=== PATIENT | female | born 1980 | race Caucasian/White ===

== ENCOUNTER 2016-07-10 10:09 | Emergency (ER) | payer MEDICARE, MEDICAID ==
[~2016-07-10] VITALS: Ht 167.6 cm; Wt 80.5 kg
[~2016-07-10 10:09] MED LIST: AMLO5TAB2 PO; ASPI-515 PO; ATOR20TA9 PO; AZIT250T PO; CARV-39 PO; CEFD300C2 PO; CINA90TA PO; CITA10TA8 PO; CITA20TA5 PO; COLC0.6T37 PO; CYCL5TAB PO; CYCL5TAB10 PO; FAMO20TA7 PO; FURO80TA77 PO; GABA300C10 PO; HYDR-3342 PO; HYDR-3343 PO; INSU100I13 SQ-INSULIN; ISOS60TA PO; ISOS60TA36 PO; LEVO75TA PO; LISI40TA PO; METR500T PO; NITR0.4T SL; OMEP20CA9 PO; ONDA4TAB10 PO; OXYC-302 PO; OXYC1TAB7 PO; PROM25SU35 PR; SEVE800T8 PO; SPIR25TA3 PO; TICA90TA PO; TRIA15OI TP; WARF5TAB7 PO; ZOLP-413 PO
[2016-07-10] MEDS ORDERED: MORPHINE SULFATE 4 MG/ML, 1ML IVPush PRN (11:30)
[2016-07-10] MEDS ORDERED: PROMETHAZINE 25 MG/ML, 1ML IM ONE (11:30)
[2016-07-10] MEDS ORDERED: SODIUM CHLORIDE FLUSH 10ML SYR IVF ONE (11:30)
[2016-07-10 11:43] LABS: HEMOGLOBIN 10.9 g/dL (11.7-16.4)
[2016-07-10 11:57] LABS: ASPARTATE AMINO TRANSFERASE 9 U/L (15-37); BLOOD UREA NITROGEN 31 mg/dL (7-18)
[2016-07-10 12:05] LABS: IS PT STATUS REG ER OR PRE ER? YES
[2016-07-10] MEDS ORDERED: PROMETHAZINE 25 MG/ML, 1ML ONE (12:09)
[2016-07-10] MEDS ORDERED: MORPHINE SULFATE 4 MG/ML, 1ML ONE (12:10)
[2016-07-10 14:17] VITALS: BP 128/70
== END 2016-07-10 14:24 | disposition home or self-care (01) ==
LOC: ED 12:37
DX: R07.89 Other chest pain (principal); S30.1XXA Contusion of abdominal wall, initial encounter; R11.2 Nausea with vomiting, unspecified; E11.9 Type 2 diabetes mellitus without complications; E78.5 Hyperlipidemia, unspecified; E87.5 Hyperkalemia; I10 Essential (primary) hypertension; E03.9 Hypothyroidism, unspecified; E21.3 Hyperparathyroidism, unspecified; D64.9 Anemia, unspecified; X58.XXXA Exposure to other specified factors, initial encounter; Y93.89 Activity, other specified; Y92.89 Other specified places as the place of occurrence of the external cause; Y99.8 Other external cause status
CPT/HCPCS: 36415; 71010; 80053; 84484; 85025; 93005; 96372; 96374; 99285; J2550

== ENCOUNTER 2016-07-16 23:49 | Emergency (ER) | payer MEDICARE, MEDICAID ==
[~2016-07-16] VITALS: Ht 170.2 cm; Wt 80.2 kg
[2016-07-17 01:15] LABS: HEMOGLOBIN 10.7 g/dL (11.7-16.4)
[2016-07-17 01:26] LABS: BLOOD UREA NITROGEN 16 mg/dL (7-18)
[2016-07-17 01:32] LABS: IS PT STATUS REG ER OR PRE ER? YES
[2016-07-17 03:55] LABS: IS PT STATUS REG ER OR PRE ER? YES
[2016-07-17] MEDS ORDERED: ACETAMINOPHEN 325 MG TABLET ONE (04:06)
[2016-07-17 04:14] VITALS: BP 155/82
[2016-07-17] MEDS ORDERED: ACETAMINOPHEN 325 MG TABLET PO ONE (04:30)
== END 2016-07-17 04:17 | disposition home or self-care (01) ==
LOC: ED 07-17 01:41
DX: R07.2 Precordial pain (principal); R06.00 Dyspnea, unspecified; I10 Essential (primary) hypertension; E11.9 Type 2 diabetes mellitus without complications; E03.9 Hypothyroidism, unspecified; E78.5 Hyperlipidemia, unspecified; F12.10 Cannabis abuse, uncomplicated; E07.9 Disorder of thyroid, unspecified; Z87.891 Personal history of nicotine dependence
CPT/HCPCS: 36415; 71010; 80048; 82040; 84484; 85025; 93005

== ENCOUNTER 2016-08-10 07:42 | Inpatient (IN) | payer MEDICARE, MEDICAID ==
[~2016-08-10] VITALS: Ht 167.6 cm; Wt 79.1 kg
[2016-08-10] MEDS ORDERED: ATOR20TA PO (07:58)
[2016-08-10 08:23] LABS: HEMOGLOBIN 9.2 g/dL (11.7-16.4)
[2016-08-10] MEDS ORDERED: SODIUM CHLORIDE FLUSH 10ML SYR IVF ONE (08:30)
[2016-08-10 08:36] LABS: BLOOD UREA NITROGEN 58 mg/dL (7-18)
[2016-08-10 08:41] LABS: IS PT STATUS REG ER OR PRE ER? YES
[2016-08-10] MEDS ORDERED: CALCIUM CHLORIDE 13.6 MEQ in SODIUM CHLORIDE 0.9% 100 ML IV STA (08:48)
[2016-08-10] MEDS ORDERED: DIPHENHYDRAMINE 50 MG/ML, 1ML IVPush ONE (09:00)
[2016-08-10] MEDS ORDERED: NITROGLYCERIN 0.4 MG BOTTLE (25 TABS) SL PRN (10:00)
[2016-08-10] MEDS ORDERED: LABETALOL 20 MG/4 ML IV PRN (10:00)
[2016-08-10] MEDS ORDERED: BISACODYL 10 MG SUPP PR PRN (10:00)
[2016-08-10] MEDS ORDERED: ACETAMINOPHEN 325 MG TABLET PO PRN (10:00)
[2016-08-10] MEDS ORDERED: DOCUSATE 100 MG CAPSULE PO PRN (10:00)
[2016-08-10] MEDS ORDERED: POLYETHYLENE GLYCOL 17 GM PACKET PO PRN (10:00)
[2016-08-10] MEDS ORDERED: SEVELAMER 800MG TABLET PO SCH (10:00)
[2016-08-10] MEDS: ONDANSETRON 2MG/ML, 2ML IVP PRN (10:58)
[2016-08-10 12:23] LABS: IS PT STATUS REG ER OR PRE ER? NO
[2016-08-10 12:45] VITALS: BP 122/48
[2016-08-10] MEDS ORDERED: OMNIPAQUE 350 MG/ML, 100ML BOTTLE ONE (16:39)
[2016-08-10] MEDS ORDERED: HEPARIN 5,000 UNITS/ML, 1ML IV PRN (17:30)
[2016-08-10] MEDS ORDERED: HEPARIN 5,000 UNITS/ML, 1ML IV ONE (17:30)
[2016-08-10] MEDS ORDERED: HEPARIN 25,000 UNITS/500ML PMX 500 ML IV PRN (17:30)
[2016-08-10 19:02] LABS: IS PT STATUS REG ER OR PRE ER? NO
[2016-08-10 20:21] VITALS: BP 145/74
[2016-08-10] MEDS ORDERED: DIPHENHYDRAMINE 25 MG CAPSULE PO PRN (20:30)
[2016-08-10] MEDS: LORazepam 2 MG/ML, 1ML IVPush PRN (20:36)
[2016-08-10] MEDS: HEPARIN 5,000 UNITS/ML, 1ML SQ SCH (20:37)
[2016-08-10] MEDS: GABAPENTIN 300 MG CAPSULE PO SCH (20:38)
[2016-08-10] MEDS: TICAGRELOR 90 MG TABLET PO SCH (20:38)
[2016-08-10] MEDS: SODIUM CHLORIDE FLUSH 10ML SYR IVF SCH (20:38)
[2016-08-10] MEDS: ATORVASTATIN 20 MG TABLET PO SCH (20:38)
[2016-08-10] MEDS: CARVEDILOL 25 MG TABLET PO SCH (20:38)
[2016-08-10] MEDS ORDERED: CINACALCET 30 MG TABLET PO SCH (21:00)
[2016-08-10] MEDS ORDERED: LISINOPRIL 20 MG TABLET PO SCH (21:00)
[2016-08-10] MEDS ORDERED: CEPHALEXIN 250 MG CAPSULE HOMEMEDPO SCH ×2 (21:30)
[2016-08-10] MEDS ORDERED: CLINDAMYCIN 300 MG CAPSULE HOMEMEDPO SCH ×2 (21:30)
[2016-08-10] MEDS: DIPHENHYDRAMINE 50 MG/ML, 1ML IVPush PRN (22:33)
[2016-08-10] MEDS: HYDROcodone/APAP 5/325 TABLET PO PRN (22:33)
[2016-08-11 01:43] VITALS: BP 125/72
[2016-08-11] MEDS: ASPIRIN 325 MG TABLET EC PO SCH (04:39)
[2016-08-11] MEDS: HEPARIN 5,000 UNITS/ML, 1ML SQ SCH ×3 (04:39→21:10)
[2016-08-11] MEDS: CEPHALEXIN 250 MG CAPSULE HOMEMEDPO SCH ×4 (04:39→21:10)
[2016-08-11] MEDS: CLINDAMYCIN 300 MG CAPSULE HOMEMEDPO SCH ×4 (04:39→21:10)
[2016-08-11] MEDS: LORazepam 2 MG/ML, 1ML IVPush PRN ×3 (04:40→19:41)
[2016-08-11] MEDS: DIPHENHYDRAMINE 50 MG/ML, 1ML IVPush PRN (04:40)
[2016-08-11 05:57] LABS: HEMOGLOBIN 9.1 g/dL (11.7-16.4)
[2016-08-11 06:29] LABS: BLOOD UREA NITROGEN 43 mg/dL (7-18)
[2016-08-11 07:03] VITALS: BP 142/75
[2016-08-11] MEDS: CARVEDILOL 25 MG TABLET PO SCH ×2 (09:00→21:09)
[2016-08-11] MEDS: TICAGRELOR 90 MG TABLET PO SCH ×2 (09:00→21:09)
[2016-08-11] MEDS: AMLODIPINE 5 MG TABLET PO SCH (09:00)
[2016-08-11] MEDS: SODIUM CHLORIDE FLUSH 10ML SYR IVF SCH ×2 (09:00→21:09)
[2016-08-11 09:05] LABS: HEP B SURF. AB 98.6 mIU/mL (0.0-10.0)
[2016-08-11] MEDS ORDERED: ARANESP 100 MCG/ML **ESRD SQ SCH (10:30)
[2016-08-11] MEDS ORDERED: SODIUM BICARBONATE 4.2%, 5ML ONE ×2 (11:47→13:53)
[2016-08-11] MEDS ORDERED: LIDOCAINE 1%, 20ML ONE ×2 (11:47→13:52)
[2016-08-11 13:05] VITALS: BP 173/89
[2016-08-11 15:14] LABS: CYTOLOGY BODY FLUID RECD INTO PATHOLOGY; CYTOLOGY BODY FLUID SOURCE PLEURAL FLUID
[2016-08-11 20:30] VITALS: BP 144/73
[2016-08-11] MEDS: LISINOPRIL 20 MG TABLET PO SCH (21:00)
[2016-08-11] MEDS: ATORVASTATIN 20 MG TABLET PO SCH (21:09)
[2016-08-11] MEDS: GABAPENTIN 300 MG CAPSULE PO SCH (21:09)
[2016-08-11] MEDS: MORPHINE SULFATE 4 MG/ML, 1ML IVPush PRN ×2 (21:10→23:16)
[2016-08-11] MEDS: ONDANSETRON 2MG/ML, 2ML IVP PRN (23:16)
[2016-08-12 01:24] VITALS: BP 139/69
[2016-08-12] MEDS: HYDROcodone/APAP 5/325 TABLET PO PRN (01:49)
[2016-08-12] MEDS: LORazepam 2 MG/ML, 1ML IVPush PRN ×3 (01:49→18:42)
[2016-08-12] MEDS: MORPHINE SULFATE 4 MG/ML, 1ML IVPush PRN ×3 (03:42→13:11)
[2016-08-12] MEDS: CEPHALEXIN 250 MG CAPSULE HOMEMEDPO SCH ×3 (05:23→16:16)
[2016-08-12] MEDS: HEPARIN 5,000 UNITS/ML, 1ML SQ SCH ×2 (05:23→12:45)
[2016-08-12] MEDS: ASPIRIN 325 MG TABLET EC PO SCH (05:23)
[2016-08-12] MEDS: ONDANSETRON 2MG/ML, 2ML IVP PRN ×2 (05:23→09:28)
[2016-08-12] MEDS: CLINDAMYCIN 300 MG CAPSULE HOMEMEDPO SCH ×3 (05:23→16:15)
[2016-08-12 06:16] LABS: BLOOD UREA NITROGEN 33 mg/dL (7-18)
[2016-08-12 06:22] LABS: TOTAL IRON BINDING CAPACITY 335 mcg/dL (250-450)
[2016-08-12 07:55] VITALS: BP 153/78
[2016-08-12] MEDS: AMLODIPINE 5 MG TABLET PO SCH (08:36)
[2016-08-12] MEDS: LISINOPRIL 20 MG TABLET PO SCH (08:36)
[2016-08-12] MEDS: SODIUM CHLORIDE FLUSH 10ML SYR IVF SCH (08:37)
[2016-08-12] MEDS: TICAGRELOR 90 MG TABLET PO SCH (08:37)
[2016-08-12] MEDS: CARVEDILOL 25 MG TABLET PO SCH (08:37)
[2016-08-12] MEDS ORDERED: DIPHENHYDRAMINE 50 MG/ML, 1ML IVPush PRN (09:00)
[2016-08-12] MEDS: SEVELAMER 800MG TABLET PO SCH ×3 (09:28→13:11)
[2016-08-12 13:05] VITALS: BP 156/80
[2016-08-12 19:26] VITALS: BP 155/84
== END 2016-08-12 20:30 | disposition home or self-care (01) | DRG 291 ==
LOC: ED 08:43 → 4EST 08:44 → ED 09:06
PROVIDERS: ADMIT Internal Medicine; ATTEND Internal Medicine
PROC: 5A1D60Z (ICD-10-PCS; 2016-08-10)
PROC: 0W993ZZ Drainage of Right Pleural Cavity, Percutaneous Approach (ICD-10-PCS; principal; 2016-08-11)
DX: I13.2 Hypertensive heart and chronic kidney disease with heart failure and with stage 5 chronic kidney disease, or end stage renal disease (principal); N18.6 End stage renal disease; J90 Pleural effusion, not elsewhere classified; E44.0 Moderate protein-calorie malnutrition; E87.1 Hypo-osmolality and hyponatremia; I50.42 Chronic combined systolic (congestive) and diastolic (congestive) heart failure; L02.31 Cutaneous abscess of buttock; J98.11 Atelectasis; D63.1 Anemia in chronic kidney disease; E03.9 Hypothyroidism, unspecified; E87.5 Hyperkalemia; E11.22 Type 2 diabetes mellitus with diabetic chronic kidney disease; I27.2 Other secondary pulmonary hypertension; I25.10 Atherosclerotic heart disease of native coronary artery without angina pectoris; G47.33 Obstructive sleep apnea (adult) (pediatric); G89.29 Other chronic pain; E11.40 Type 2 diabetes mellitus with diabetic neuropathy, unspecified; F32.9 Major depressive disorder, single episode, unspecified; E21.3 Hyperparathyroidism, unspecified; E55.9 Vitamin D deficiency, unspecified; Z83.3 Family history of diabetes mellitus; Z99.2 Dependence on renal dialysis; Z86.711 Personal history of pulmonary embolism; Z95.5 Presence of coronary angioplasty implant and graft; Z82.49 Family history of ischemic heart disease and other diseases of the circulatory system; Z82.0 Family history of epilepsy and other diseases of the nervous system; Z87.891 Personal history of nicotine dependence; Z68.28 Body mass index [BMI] 28.0-28.9, adult; I25.2 Old myocardial infarction; Z87.01 Personal history of pneumonia (recurrent); Z91.19 Patient's noncompliance with other medical treatment and regimen
CPT/HCPCS: 32555; 36415; 71010; 71275; 80048; 80061; 82040; 82042; 82728; 82962; 83540; 83550; 83615; 83735; 83880; 84100; 84132; 84157; 84484; 85025; 85610; 86704; 86706; 87070; 87075; 87205; 87340; 88112; 88305; 89051; 93005; 93306; 99285; J0882; J1644; J2405; J3490; Q9967; J1200; J2060; Q0163

== ENCOUNTER 2016-08-18 22:56 | Emergency (ER) | payer MEDICARE, MEDICAID ==
[~2016-08-18] VITALS: Ht 167.6 cm; Wt 75.0 kg
[~2016-08-18 22:56] MED LIST changes: +ATOR20TA PO
[2016-08-18] MEDS ORDERED: SPIR25TA3 PO (23:43)
[2016-08-18 23:55] LABS: BLOOD UREA NITROGEN 40 mg/dL (7-18)
[2016-08-19 00:35] VITALS: BP 152/77
== END 2016-08-19 01:13 | disposition home or self-care (01) ==
LOC: ED 23:20
DX: N92.1 Excessive and frequent menstruation with irregular cycle (principal); I25.10 Atherosclerotic heart disease of native coronary artery without angina pectoris; F32.9 Major depressive disorder, single episode, unspecified; E21.3 Hyperparathyroidism, unspecified; E78.5 Hyperlipidemia, unspecified; E03.9 Hypothyroidism, unspecified; E11.9 Type 2 diabetes mellitus without complications; I11.0 Hypertensive heart disease with heart failure; I50.9 Heart failure, unspecified; I25.2 Old myocardial infarction; Z88.6 Allergy status to analgesic agent; Z91.018 Allergy to other foods; Z87.891 Personal history of nicotine dependence; Z91.048 Other nonmedicinal substance allergy status; Z95.818 Presence of other cardiac implants and grafts; Z86.2 Personal history of diseases of the blood and blood-forming organs and certain disorders involving the immune mechanism; Z99.2 Dependence on renal dialysis
CPT/HCPCS: 36415; 80048; 82040; 85025; 85610; 85730; 99284

== ENCOUNTER 2016-10-12 05:24 | Inpatient (IN) | payer MEDICARE, MEDICAID ==
[~2016-10-12] VITALS: Ht 167.6 cm; Wt 86.9 kg
[~2016-10-12 05:24] MED LIST changes: -CEFD300C2 PO; +CEFD300C37 PO
[2016-10-12] MEDS ORDERED: SODIUM CHLORIDE FLUSH 10ML SYR IVF ONE (06:00)
[2016-10-12 06:20] LABS: ASPARTATE AMINO TRANSFERASE 14 U/L (15-37); BLOOD UREA NITROGEN 51 mg/dL (7-18)
[2016-10-12 06:42] LABS: IS PT STATUS REG ER OR PRE ER? YES
[2016-10-12] MEDS ORDERED: MORPHINE SULFATE 4 MG/ML, 1ML ONE (07:50)
[2016-10-12] MEDS ORDERED: ONDANSETRON 2MG/ML, 2ML ONE (07:50)
[2016-10-12] MEDS ORDERED: ASPIRIN 81 MG TABLET CHEW ONE (07:50)
[2016-10-12] MEDS ORDERED: MORPHINE SULFATE 4 MG/ML, 1ML IVPush PRN (08:00)
[2016-10-12] MEDS ORDERED: ASPIRIN 81 MG TABLET CHEW PO ONE (08:00)
[2016-10-12] MEDS ORDERED: ONDANSETRON 2MG/ML, 2ML IVPush ONE (08:00)
[2016-10-12] MEDS ORDERED: SODIUM CHLORIDE FLUSH 10ML SYR IVF PRN (08:00)
[2016-10-12] MEDS ORDERED: SEVE800T8 PO (08:20)
[2016-10-12 10:00] VITALS: BP 169/88
[2016-10-12] MEDS ORDERED: DEXTROSE 4 GM TAB.CHEW PO PRN (10:30)
[2016-10-12] MEDS ORDERED: LABETALOL 5MG/ML, 20ML IVPush PRN (10:30)
[2016-10-12] MEDS ORDERED: VANCOMYCIN PER PHARMACY MC PRN (10:30)
[2016-10-12] MEDS ORDERED: PHARMACY MAY ADJ FOR RENAL FX MC PRN (10:30)
[2016-10-12] MEDS ORDERED: BISACODYL 10 MG SUPP PR PRN (10:30)
[2016-10-12] MEDS ORDERED: ENALAPRILAT 1.25 MG/ML, 2ML IVPush PRN (10:30)
[2016-10-12] MEDS ORDERED: DEXTROSE 50%, 50ML SYRINGE IVPush PRN (10:30)
[2016-10-12] MEDS ORDERED: ACETAMINOPHEN 325 MG TABLET PO PRN (10:30)
[2016-10-12] MEDS ORDERED: GLUCAGON 1 MG IM PRN (10:30)
[2016-10-12] MEDS ORDERED: PHARMACOKINETIC MONITORING MC PRN (10:30)
[2016-10-12] MEDS ORDERED: DOCUSATE 100 MG CAPSULE PO PRN (10:30)
[2016-10-12] MEDS ORDERED: VANCOMYCIN PMX 1GM/200ML 200 ML IV ONE (10:30)
[2016-10-12] MEDS ORDERED: PIPERACILLIN/TAZO 3.375 GM in SODIUM CHLORIDE 0.9% 50 ML IV ONE (10:30)
[2016-10-12] MEDS ORDERED: POLYETHYLENE GLYCOL 17 GM PACKET PO PRN (10:30)
[2016-10-12] MEDS: INSULIN ASPART 100 UNITS/ML, PEN SQ-INSULIN SCH ×3 (11:00→19:48)
[2016-10-12] MEDS ORDERED: VANCOMYCIN 1,300 MG in SODIUM CHLORIDE 0.9% 250 ML IV ONE (11:00)
[2016-10-12] MEDS: HEPARIN 5,000 UNITS/ML, 1ML SQ SCH ×2 (11:28→18:35)
[2016-10-12] MEDS: SEVELAMER 800MG TABLET PO SCH ×2 (11:28→18:35)
[2016-10-12] MEDS: AMLODIPINE 5 MG TABLET PO SCH (11:28)
[2016-10-12 11:59] LABS: IS PT STATUS REG ER OR PRE ER? NO
[2016-10-12] MEDS ORDERED: DIPHENHYDRAMINE 50 MG/ML, 1ML IVPush ONE (12:00)
[2016-10-12 14:01] VITALS: BP 154/82
[2016-10-12 16:23] LABS: IS PT STATUS REG ER OR PRE ER? NO
[2016-10-12] MEDS ORDERED: PIPERACILLIN/TAZO 2.25 GM in SODIUM CHLORIDE 0.9% 50 ML IV SCH (18:30)
[2016-10-12] MEDS: SODIUM CHLORIDE FLUSH 10ML SYR IVF SCH (19:45)
[2016-10-12] MEDS: TICAGRELOR 90 MG TABLET PO SCH (19:46)
[2016-10-12] MEDS: CARVEDILOL 25 MG TABLET PO SCH (19:46)
[2016-10-12] MEDS: GABAPENTIN 300 MG CAPSULE PO SCH (19:47)
[2016-10-12] MEDS: CINACALCET 30 MG TABLET PO SCH (19:47)
[2016-10-12] MEDS: ATORVASTATIN 20 MG TABLET PO SCH (19:47)
[2016-10-12] MEDS: LISINOPRIL 20 MG TABLET PO SCH (19:47)
[2016-10-12] MEDS: PIPERACILLIN/TAZO/PMX 2.25GM 50 ML IVPB SCH (21:57)
[2016-10-13] MEDS: ONDANSETRON 2MG/ML, 2ML IVPush PRN ×3 (00:10→20:26)
[2016-10-13] MEDS: OXYcodone/APAP 5/325MG TABLET PO PRN ×4 (00:10→20:26)
[2016-10-13 02:30] VITALS: BP 160/80
[2016-10-13] MEDS: HEPARIN 5,000 UNITS/ML, 1ML SQ SCH ×3 (02:30→17:41)
[2016-10-13] MEDS: PIPERACILLIN/TAZO/PMX 2.25GM 50 ML IVPB SCH ×3 (05:58→23:01)
[2016-10-13 06:39] LABS: ASPARTATE AMINO TRANSFERASE 9 U/L (15-37); BLOOD UREA NITROGEN 26 mg/dL (7-18)
[2016-10-13] MEDS: INSULIN ASPART 100 UNITS/ML, PEN SQ-INSULIN SCH ×4 (07:00→21:00)
[2016-10-13 07:52] VITALS: BP 163/84
[2016-10-13] MEDS: CARVEDILOL 25 MG TABLET PO SCH ×2 (08:46→23:01)
[2016-10-13] MEDS: TICAGRELOR 90 MG TABLET PO SCH ×2 (08:46→22:35)
[2016-10-13] MEDS: SPIRONOLACTONE 25 MG TABLET PO SCH (08:46)
[2016-10-13] MEDS: SODIUM CHLORIDE FLUSH 10ML SYR IVF SCH ×2 (08:46→22:35)
[2016-10-13] MEDS: SEVELAMER 800MG TABLET PO SCH ×3 (08:46→17:35)
[2016-10-13] MEDS: AMLODIPINE 5 MG TABLET PO SCH (08:46)
[2016-10-13] MEDS: LISINOPRIL 20 MG TABLET PO SCH ×2 (08:47→22:35)
[2016-10-13] MEDS: SENNA/DOCUSATE TABLET PO SCH (08:47)
[2016-10-13] MEDS: GUAIFENESIN/DM 100-10MG, 5ML UDC PO PRN (08:58)
[2016-10-13] MEDS ORDERED: NITROGLYCERIN 0.4 MG BOTTLE (25 TABS) SL ONE (12:21)
[2016-10-13 12:26] VITALS: BP 117/69
[2016-10-13] MEDS ORDERED: NITROGLYCERIN 0.4 MG/SPRAY SL PRN (12:30)
[2016-10-13 13:24] VITALS: BP 115/71
[2016-10-13] MEDS: DIPHENHYDRAMINE 50 MG/ML, 1ML IVPush PRN ×2 (15:53→22:34)
[2016-10-13] MEDS: LORazepam 2 MG/ML, 1ML IVPush PRN ×2 (15:53→22:35)
[2016-10-13 17:33] VITALS: BP 131/72
[2016-10-13] MEDS: ALBUTEROL/IPRATROPIUM 2.5MG/0.5MG, 3 ML NPPB SCH (21:19)
[2016-10-13 22:33] VITALS: BP 123/73
[2016-10-13] MEDS: ATORVASTATIN 20 MG TABLET PO SCH (22:35)
[2016-10-13] MEDS: CINACALCET 30 MG TABLET PO SCH (22:35)
[2016-10-13] MEDS: GABAPENTIN 300 MG CAPSULE PO SCH (22:35)
[2016-10-14] MEDS: ALBUTEROL/IPRATROPIUM 2.5MG/0.5MG, 3 ML NPPB SCH ×6 (01:30→22:00)
[2016-10-14] MEDS: HEPARIN 5,000 UNITS/ML, 1ML SQ SCH ×3 (03:20→18:37)
[2016-10-14 03:23] VITALS: BP 132/81
[2016-10-14] MEDS: GUAIFENESIN/DM 100-10MG, 5ML UDC PO PRN ×2 (03:37→22:35)
[2016-10-14] MEDS: LORazepam 2 MG/ML, 1ML IVPush PRN ×2 (05:30→21:30)
[2016-10-14] MEDS: DIPHENHYDRAMINE 50 MG/ML, 1ML IVPush PRN ×3 (05:30→21:30)
[2016-10-14 06:10] LABS: BLOOD UREA NITROGEN 45 mg/dL (7-18)
[2016-10-14] MEDS: PIPERACILLIN/TAZO/PMX 2.25GM 50 ML IVPB SCH ×2 (06:46→21:30)
[2016-10-14] MEDS: OXYcodone/APAP 5/325MG TABLET PO PRN (06:46)
[2016-10-14 07:53] VITALS: BP 117/74
[2016-10-14] MEDS: AMLODIPINE 5 MG TABLET PO SCH (10:33)
[2016-10-14] MEDS: SPIRONOLACTONE 25 MG TABLET PO SCH (10:33)
[2016-10-14] MEDS: SENNA/DOCUSATE TABLET PO SCH (10:33)
[2016-10-14] MEDS: LISINOPRIL 20 MG TABLET PO SCH ×2 (10:33→21:31)
[2016-10-14] MEDS: SEVELAMER 800MG TABLET PO SCH ×3 (10:34→17:00)
[2016-10-14] MEDS: TICAGRELOR 90 MG TABLET PO SCH ×2 (10:34→21:32)
[2016-10-14] MEDS: CARVEDILOL 25 MG TABLET PO SCH ×2 (10:34→21:32)
[2016-10-14] MEDS: INSULIN ASPART 100 UNITS/ML, PEN SQ-INSULIN SCH ×4 (10:37→21:00)
[2016-10-14] MEDS: SODIUM CHLORIDE FLUSH 10ML SYR IVF SCH ×2 (10:37→21:32)
[2016-10-14] MEDS ORDERED: PIPERACILLIN/TAZO 0.75 GM in SODIUM CHLORIDE 0.9% 50 ML IV SCH (11:00)
[2016-10-14 12:32] VITALS: BP 122/73
[2016-10-14 20:06] VITALS: BP 157/69
[2016-10-14] MEDS: GABAPENTIN 300 MG CAPSULE PO SCH (21:31)
[2016-10-14] MEDS: ATORVASTATIN 20 MG TABLET PO SCH (21:31)
[2016-10-14] MEDS: CINACALCET 30 MG TABLET PO SCH (21:31)
[2016-10-15] MEDS: OXYcodone/APAP 5/325MG TABLET PO PRN ×3 (00:10→15:46)
[2016-10-15] MEDS: ONDANSETRON 2MG/ML, 2ML IVPush PRN ×2 (00:10→15:46)
[2016-10-15 01:50] VITALS: BP 119/71
[2016-10-15] MEDS: HEPARIN 5,000 UNITS/ML, 1ML SQ SCH ×2 (04:40→15:18)
[2016-10-15] MEDS: LORazepam 2 MG/ML, 1ML IVPush PRN ×4 (04:40→21:05)
[2016-10-15] MEDS: DIPHENHYDRAMINE 50 MG/ML, 1ML IVPush PRN ×4 (04:40→21:34)
[2016-10-15] MEDS: PIPERACILLIN/TAZO/PMX 2.25GM 50 ML IVPB SCH (04:41)
[2016-10-15 06:28] LABS: BLOOD UREA NITROGEN 30 mg/dL (7-18)
[2016-10-15 06:45] VITALS: BP 135/79
[2016-10-15] MEDS: INSULIN ASPART 100 UNITS/ML, PEN SQ-INSULIN SCH ×4 (07:00→21:00)
[2016-10-15] MEDS: ALBUTEROL/IPRATROPIUM 2.5MG/0.5MG, 3 ML NPPB SCH ×4 (07:23→20:03)
[2016-10-15] MEDS: SEVELAMER 800MG TABLET PO SCH ×3 (08:49→17:08)
[2016-10-15] MEDS: CARVEDILOL 25 MG TABLET PO SCH ×2 (08:50→21:07)
[2016-10-15] MEDS: LISINOPRIL 20 MG TABLET PO SCH ×2 (08:50→21:06)
[2016-10-15] MEDS: AMLODIPINE 5 MG TABLET PO SCH (08:50)
[2016-10-15] MEDS: TICAGRELOR 90 MG TABLET PO SCH ×2 (08:50→21:06)
[2016-10-15] MEDS: SENNA/DOCUSATE TABLET PO SCH (08:51)
[2016-10-15] MEDS: SODIUM CHLORIDE FLUSH 10ML SYR IVF SCH ×2 (08:51→21:07)
[2016-10-15] MEDS: SPIRONOLACTONE 25 MG TABLET PO SCH (08:51)
[2016-10-15] MEDS ORDERED: VANCOMYCIN 1,300 MG in SODIUM CHLORIDE 0.9% 250 ML IV ONE (12:00)
[2016-10-15] MEDS ORDERED: CEFTRIAXONE 1,000 MG in SODIUM CHLORIDE 0.9% 50 ML IV SCH (13:00)
[2016-10-15 14:15] VITALS: BP 118/72
[2016-10-15 17:00] VITALS: BP 128/81
[2016-10-15] MEDS: CEFTRIAXONE PMX 1GM/50ML 50 ML IV SCH (17:06)
[2016-10-15] MEDS: metroNIDAZOLE 500 MG TABLET PO SCH (18:26)
[2016-10-15 19:34] VITALS: BP 121/73
[2016-10-15] MEDS: CINACALCET 30 MG TABLET PO SCH (21:06)
[2016-10-15] MEDS: ATORVASTATIN 20 MG TABLET PO SCH (21:06)
[2016-10-15] MEDS: GABAPENTIN 300 MG CAPSULE PO SCH (21:06)
[2016-10-16] MEDS: HEPARIN 5,000 UNITS/ML, 1ML SQ SCH ×3 (00:17→18:38)
[2016-10-16 00:49] VITALS: BP 124/74
[2016-10-16] MEDS: OXYcodone/APAP 5/325MG TABLET PO PRN ×2 (01:59→10:16)
[2016-10-16] MEDS: DIPHENHYDRAMINE 50 MG/ML, 1ML IVPush PRN ×3 (04:27→17:56)
[2016-10-16] MEDS: metroNIDAZOLE 500 MG TABLET PO SCH ×4 (04:27→21:43)
[2016-10-16] MEDS: LORazepam 2 MG/ML, 1ML IVPush PRN ×3 (04:27→21:42)
[2016-10-16 05:50] LABS: BLOOD UREA NITROGEN 53 mg/dL (7-18)
[2016-10-16] MEDS: ALBUTEROL/IPRATROPIUM 2.5MG/0.5MG, 3 ML NPPB SCH ×5 (06:45→23:50)
[2016-10-16] MEDS: INSULIN ASPART 100 UNITS/ML, PEN SQ-INSULIN SCH ×4 (07:00→21:00)
[2016-10-16 07:37] VITALS: BP 125/76
[2016-10-16] MEDS: SODIUM CHLORIDE FLUSH 10ML SYR IVF SCH ×2 (09:00→21:44)
[2016-10-16 10:15] VITALS: BP 122/74
[2016-10-16] MEDS: SEVELAMER 800MG TABLET PO SCH ×3 (10:17→17:59)
[2016-10-16] MEDS: LISINOPRIL 20 MG TABLET PO SCH ×2 (10:17→21:43)
[2016-10-16] MEDS: AMLODIPINE 5 MG TABLET PO SCH (10:18)
[2016-10-16] MEDS: SENNA/DOCUSATE TABLET PO SCH (10:18)
[2016-10-16] MEDS: CARVEDILOL 25 MG TABLET PO SCH ×2 (10:18→21:43)
[2016-10-16] MEDS: TICAGRELOR 90 MG TABLET PO SCH ×2 (10:18→21:44)
[2016-10-16] MEDS: SPIRONOLACTONE 25 MG TABLET PO SCH (10:19)
[2016-10-16 14:36] VITALS: BP 116/63
[2016-10-16] MEDS: CEFTRIAXONE PMX 1GM/50ML 50 ML IV SCH ×2 (14:40→18:00)
[2016-10-16 21:34] VITALS: BP 155/78
[2016-10-16] MEDS: ATORVASTATIN 20 MG TABLET PO SCH (21:43)
[2016-10-16] MEDS: GABAPENTIN 300 MG CAPSULE PO SCH (21:43)
[2016-10-16] MEDS: CINACALCET 30 MG TABLET PO SCH (21:43)
[2016-10-17] MEDS: OXYcodone/APAP 5/325MG TABLET PO PRN ×4 (00:34→21:57)
[2016-10-17] MEDS: ONDANSETRON 2MG/ML, 2ML IVPush PRN (00:35)
[2016-10-17] MEDS: DIPHENHYDRAMINE 50 MG/ML, 1ML IVPush PRN ×4 (00:35→20:39)
[2016-10-17 01:30] VITALS: BP 149/77
[2016-10-17] MEDS: HEPARIN 5,000 UNITS/ML, 1ML SQ SCH ×3 (02:00→18:39)
[2016-10-17] MEDS: metroNIDAZOLE 500 MG TABLET PO SCH ×3 (05:26→20:38)
[2016-10-17] MEDS: LORazepam 2 MG/ML, 1ML IVPush PRN ×3 (05:27→20:38)
[2016-10-17 05:53] LABS: BLOOD UREA NITROGEN 28 mg/dL (7-18)
[2016-10-17] MEDS: ALBUTEROL/IPRATROPIUM 2.5MG/0.5MG, 3 ML NPPB SCH ×4 (06:00→19:38)
[2016-10-17 06:32] VITALS: BP 149/82
[2016-10-17] MEDS: INSULIN ASPART 100 UNITS/ML, PEN SQ-INSULIN SCH ×4 (07:00→20:44)
[2016-10-17] MEDS: SODIUM CHLORIDE FLUSH 10ML SYR IVF SCH ×2 (09:00→20:39)
[2016-10-17] MEDS: LISINOPRIL 20 MG TABLET PO SCH ×2 (10:19→20:38)
[2016-10-17] MEDS: SPIRONOLACTONE 25 MG TABLET PO SCH (10:20)
[2016-10-17] MEDS: CARVEDILOL 25 MG TABLET PO SCH ×2 (10:20→20:37)
[2016-10-17] MEDS: TICAGRELOR 90 MG TABLET PO SCH ×2 (10:20→20:37)
[2016-10-17] MEDS: SENNA/DOCUSATE TABLET PO SCH (10:20)
[2016-10-17] MEDS: AMLODIPINE 5 MG TABLET PO SCH (10:20)
[2016-10-17] MEDS: SEVELAMER 800MG TABLET PO SCH ×3 (10:21→18:39)
[2016-10-17 15:04] VITALS: BP 125/71
[2016-10-17] MEDS: CEFTRIAXONE PMX 1GM/50ML 50 ML IV SCH (18:40)
[2016-10-17 20:00] VITALS: BP 128/76
[2016-10-17] MEDS: CINACALCET 30 MG TABLET PO SCH (20:38)
[2016-10-17] MEDS: ATORVASTATIN 20 MG TABLET PO SCH (20:38)
[2016-10-17] MEDS: GABAPENTIN 300 MG CAPSULE PO SCH (20:38)
[2016-10-17] MEDS ORDERED: DIPHENHYDRAMINE 50 MG/ML, 1ML IVPush ONE (22:00)
[2016-10-18] MEDS: HEPARIN 5,000 UNITS/ML, 1ML SQ SCH ×2 (00:58→08:53)
[2016-10-18] MEDS: OXYcodone/APAP 5/325MG TABLET PO PRN ×2 (04:06→08:50)
[2016-10-18] MEDS: LORazepam 2 MG/ML, 1ML IVPush PRN (04:06)
[2016-10-18] MEDS: DIPHENHYDRAMINE 50 MG/ML, 1ML IVPush PRN (04:07)
[2016-10-18 04:12] VITALS: BP 135/75
[2016-10-18] MEDS: metroNIDAZOLE 500 MG TABLET PO SCH (05:22)
[2016-10-18] MEDS: ALBUTEROL/IPRATROPIUM 2.5MG/0.5MG, 3 ML NPPB SCH ×2 (05:35→09:53)
[2016-10-18] MEDS: INSULIN ASPART 100 UNITS/ML, PEN SQ-INSULIN SCH ×2 (07:00→11:00)
[2016-10-18 07:55] VITALS: BP 136/81
[2016-10-18] MEDS: AMLODIPINE 5 MG TABLET PO SCH (08:51)
[2016-10-18] MEDS: LISINOPRIL 20 MG TABLET PO SCH (08:51)
[2016-10-18] MEDS: SENNA/DOCUSATE TABLET PO SCH (08:51)
[2016-10-18] MEDS: SODIUM CHLORIDE FLUSH 10ML SYR IVF SCH (08:52)
[2016-10-18] MEDS: SEVELAMER 800MG TABLET PO SCH ×2 (08:52→11:45)
[2016-10-18] MEDS: SPIRONOLACTONE 25 MG TABLET PO SCH (08:52)
[2016-10-18] MEDS: TICAGRELOR 90 MG TABLET PO SCH (08:52)
[2016-10-18] MEDS: CARVEDILOL 25 MG TABLET PO SCH (08:52)
[2016-10-18] MEDS ORDERED: DIPHENHYDRAMINE 25 MG CAPSULE PO PRN (10:30)
[2016-10-18] MEDS ORDERED: METR500T PO (11:08)
[2016-10-18] MEDS ORDERED: CEFD300C37 PO (11:08)
[2016-10-18] MEDS ORDERED: OXYC1TAB7 PO (11:08)
== END 2016-10-18 12:55 | disposition home or self-care (01) | DRG 291 ==
LOC: ED 06:25 → EDIP 07:52 → 5SO 09:21 → 4WST 10-13 18:34
PROVIDERS: ADMIT Internal Medicine; ATTEND Family Medicine
PROC: 5A1D60Z (ICD-10-PCS; principal; 2016-10-12)
DX: I13.2 Hypertensive heart and chronic kidney disease with heart failure and with stage 5 chronic kidney disease, or end stage renal disease (principal); J18.9 Pneumonia, unspecified organism; N18.6 End stage renal disease; I50.43 Acute on chronic combined systolic (congestive) and diastolic (congestive) heart failure; J90 Pleural effusion, not elsewhere classified; E87.1 Hypo-osmolality and hyponatremia; F11.20 Opioid dependence, uncomplicated; L03.311 Cellulitis of abdominal wall; E11.22 Type 2 diabetes mellitus with diabetic chronic kidney disease; E87.5 Hyperkalemia; I25.10 Atherosclerotic heart disease of native coronary artery without angina pectoris; E21.3 Hyperparathyroidism, unspecified; E11.21 Type 2 diabetes mellitus with diabetic nephropathy; E03.9 Hypothyroidism, unspecified; D63.1 Anemia in chronic kidney disease; E11.40 Type 2 diabetes mellitus with diabetic neuropathy, unspecified; E55.9 Vitamin D deficiency, unspecified; E78.5 Hyperlipidemia, unspecified; J30.2 Other seasonal allergic rhinitis; G47.33 Obstructive sleep apnea (adult) (pediatric); N05.9 Unspecified nephritic syndrome with unspecified morphologic changes; G89.29 Other chronic pain; Z95.5 Presence of coronary angioplasty implant and graft; I25.2 Old myocardial infarction; Z82.49 Family history of ischemic heart disease and other diseases of the circulatory system; Z83.3 Family history of diabetes mellitus; Z86.711 Personal history of pulmonary embolism; Z87.891 Personal history of nicotine dependence; Z99.2 Dependence on renal dialysis; Z90.710 Acquired absence of both cervix and uterus; Z88.5 Allergy status to narcotic agent
CPT/HCPCS: 36415; 71020; 80048; 80053; 80202; 81001; 82962; 83605; 83735; 83880; 84100; 84443; 84484; 85025; 85610; 85730; 87040; 87070; 87205; 93005; 94640; 96374; 96375; J0696; J1644; J2405; J2543; J3370; J7620; J1200; J2060; J7050; Q0163

== ENCOUNTER 2018-05-30 11:40 | Outpatient (CLI) | payer MEDICARE, MEDICAID ==
[~2018-05-30 11:40] MED LIST changes: +AMLO-150 PO; -AMLO5TAB2 PO; +ATOR20TA37 PO; -ATOR20TA9 PO; -CITA20TA5 PO; +CITA20TA6 PO; -SPIR25TA3 PO; +SPIR25TA5 PO; +WARF-36 PO; -WARF5TAB7 PO
[2018-05-30] MEDS ORDERED: MIDAZOLAM 1 MG/ML, 5ML ONE (12:43)
[2018-05-30] MEDS ORDERED: FLUMAZENIL 0.1 MG/1 ML, 5ML ONE (12:43)
[2018-05-30] MEDS ORDERED: NALOXONE 1 MG/ML, 2ML ONE (12:43)
[2018-05-30] MEDS ORDERED: FENTANYL PF 100 MCG/2ML ONE (12:43)
== END 2018-05-30 23:59 | disposition home or self-care (01) ==
LOC: RAD 11:40
PROVIDERS: ATTEND Nurse Practitioner
DX: M25.751 Osteophyte, right hip (principal); M87.851 Other osteonecrosis, right femur; M25.451 Effusion, right hip; M54.5 Low back pain; M65.851 Other synovitis and tenosynovitis, right thigh; N83.202 Unspecified ovarian cyst, left side; N83.201 Unspecified ovarian cyst, right side
CPT/HCPCS: 72148; 73721; 99156; 99157; J2250; J3010; J2310

== ENCOUNTER → 2019-06-29 | Outpatient (CLI) | payer MEDICARE, MEDICAID ==
[~2019-06-29] MED LIST changes: +FENTANYL PF 100 MCG/2ML ONE; +MIDAZOLAM 1 MG/ML, 5ML ONE; -NITR0.4T SL; +NITR0.4T41 SL
== END | disposition home or self-care (01) ==
LOC: RAD 11:58
PROVIDERS: ATTEND Nurse Practitioner
DX: G35 Multiple sclerosis (principal); M51.46 Schmorl's nodes, lumbar region; F32.9 Major depressive disorder, single episode, unspecified; E10.22 Type 1 diabetes mellitus with diabetic chronic kidney disease; I13.2 Hypertensive heart and chronic kidney disease with heart failure and with stage 5 chronic kidney disease, or end stage renal disease; N18.6 End stage renal disease; I50.84 End stage heart failure; I50.22 Chronic systolic (congestive) heart failure; E03.9 Hypothyroidism, unspecified; Z99.2 Dependence on renal dialysis; Z79.899 Other long term (current) drug therapy
CPT/HCPCS: 70551; 72148; 99156; 99157; J2250; J3010

== ENCOUNTER 2021-01-17 10:51 | Day surgery (SDC) | payer MEDICARE, MEDICAID ==
[~2021-01-17] VITALS: Ht 167.6 cm; Wt 90.1 kg
[~2021-01-17 10:51] MED LIST changes: -ASPI-515 PO; +ASPI-963 PO; -FENTANYL PF 100 MCG/2ML ONE; -LISI40TA PO; +LISI40TA9 PO; -MIDAZOLAM 1 MG/ML, 5ML ONE; -OXYC-302 PO; +OXYC1TAB12 PO
[2021-01-17] MEDS ORDERED: CHLORHEXIDINE 15 ML UDC ONE (11:39)
[2021-01-17] MEDS ORDERED: SODIUM CHLORIDE 0.9% 1,000 ML IV SCH (12:00)
[2021-01-17] MEDS ORDERED: CHLORHEXIDINE 15 ML UDC PO ONE (12:00)
[2021-01-17] MEDS ORDERED: SERT-331 PO (12:28)
[2021-01-17 12:32] VITALS: BP 109/73
[2021-01-17 12:44] LABS: BASOPHILS % (AUTO) 1 % (0-1); EOSINOPHILS % (AUTO) 2 % (1-7); LYMPHOCYTES % (AUTO) 11 % (22-44); MEAN CORPUSCULAR HEMOGLOBIN 32.8 pg (27.0-34.8); MEAN CORPUSCULAR HGB CONC 33.3 g/dL (32.4-35.8); MEAN PLATELET VOLUME 8.3 fL (7.4-10.4); MONOCYTES % (AUTO) 14 % (2-9); NEUTROPHILS % (AUTO) 73 % (42-75); PLATELET COUNT 158 x10^3/uL (130-400); RED BLOOD COUNT 3.33 x10^6/uL (3.82-5.3); RED CELL DISTRIBUTION WIDTH 15.5 % (9.6-15.2)
[2021-01-17] MEDS ORDERED: OXYC1TAB18 PO (12:51)
[2021-01-17] MEDS ORDERED: CARV-39 PO (12:51)
[2021-01-17 12:58] LABS: ALANINE AMINOTRANSFERASE 13 U/L (12-78); ALBUMIN 3.4 g/dL (3.4-5.0); ANION GAP 4 mmol/L (5-15); CALCIUM 9.3 mg/dL (8.5-10.1); CHLORIDE 96 mmol/L (98-107); CREATININE 2.54 mg/dL (0.55-1.02)
[2021-01-17 13:00] LABS: ALKALINE PHOSPHATASE 204 U/L (45-117); BILIRUBIN,TOTAL 0.9 mg/dL (0.2-1.0); TOTAL PROTEIN 8.7 g/dL (6.4-8.2)
[2021-01-17] MEDS ORDERED: HEPARIN 1,000 UNITS/ML, 10ML ONE (13:45)
[2021-01-17] MEDS ORDERED: BUPIVACAINE/PF 0.5% ONE (13:45)
[2021-01-17] MEDS ORDERED: EPINEPHRINE 1 MG/ML, 1ML ONE (13:45)
[2021-01-17] MEDS ORDERED: THROMBIN 20,000 UNIT VIAL TP ONE (13:45)
[2021-01-17] MEDS ORDERED: FENTANYL PF 250 MCG/5ML ONE ×2 (14:02→14:57)
[2021-01-17] MEDS ORDERED: PROPOFOL 10 MG/ML, 20ML ONE (14:03)
[2021-01-17] MEDS ORDERED: DEXAMETHASONE 4 MG/ML, 1ML ONE (14:03)
[2021-01-17] MEDS ORDERED: GLYCOPYRROLATE 0.2MG/1ML, 5ML ONE (14:03)
[2021-01-17] MEDS ORDERED: ONDANSETRON 2MG/ML, 2ML ONE (14:03)
[2021-01-17] MEDS ORDERED: ROCURONIUM 10MG/ML,5ML ONE (14:03)
[2021-01-17] MEDS ORDERED: CEFAZOLIN 1,000 MG ONE (14:03)
[2021-01-17] MEDS ORDERED: NEOSTIGMINE 1 MG/ML, 10ML ONE (14:03)
[2021-01-17] MEDS ORDERED: HEPARIN 1,000 UNITS/ML, 1ML IV ONE (14:32)
[2021-01-17] MEDS ORDERED: DIPHENHYDRAMINE 50 MG/ML, 1ML IVPush PRN (15:00)
[2021-01-17] MEDS ORDERED: MEPERIDINE/PF 25MG/0.5ML IVPush PRN (15:00)
[2021-01-17] MEDS ORDERED: HYDROmorphone 1 MG/ML, 1ML INJ IVPush PRN (15:00)
[2021-01-17] MEDS ORDERED: FENTANYL PF 100 MCG/2ML IV PRN (15:00)
[2021-01-17] MEDS ORDERED: DEXTROSE 50%, 50ML SYRINGE IVPush ONE (15:00)
[2021-01-17] MEDS ORDERED: METHOCARBAMOL 1,000 MG in DEXTROSE 5% 100 ML IV PRN (15:00)
[2021-01-17] MEDS ORDERED: LORazepam 2 MG/ML, 1ML IVPush PRN (15:00)
[2021-01-17] MEDS ORDERED: HYDROcodone/APAP 7.5-325MG/15ML UDC PO PRN (15:00)
[2021-01-17] MEDS ORDERED: PROMETHAZINE 25 MG/ML, 1ML IVPush PRN (15:00)
[2021-01-17] MEDS ORDERED: ONDANSETRON 2MG/ML, 2ML IVPush PRN (15:00)
[2021-01-17] MEDS ORDERED: PROTAMINE SULFATE 10 MG/ML, 25ML ONE (15:22)
== END 2021-01-17 18:42 | disposition home or self-care (01) ==
LOC: OUT 10:51
PROVIDERS: ATTEND Surgery
DX: T82.848A Pain due to vascular prosthetic devices, implants and grafts, initial encounter (principal); E10.22 Type 1 diabetes mellitus with diabetic chronic kidney disease; I13.2 Hypertensive heart and chronic kidney disease with heart failure and with stage 5 chronic kidney disease, or end stage renal disease; I50.9 Heart failure, unspecified; N18.6 End stage renal disease; I42.9 Cardiomyopathy, unspecified; K21.9 Gastro-esophageal reflux disease without esophagitis; E78.5 Hyperlipidemia, unspecified; E66.9 Obesity, unspecified; Z68.31 Body mass index [BMI] 31.0-31.9, adult; Z79.899 Other long term (current) drug therapy; Z87.891 Personal history of nicotine dependence; Z88.5 Allergy status to narcotic agent; Z88.8 Allergy status to other drugs, medicaments and biological substances; Z90.49 Acquired absence of other specified parts of digestive tract; Z98.890 Other specified postprocedural states; Z82.49 Family history of ischemic heart disease and other diseases of the circulatory system; Z82.3 Family history of stroke; Y83.8 Other surgical procedures as the cause of abnormal reaction of the patient, or of later complication, without mention of misadventure at the time of the procedure
CPT/HCPCS: 36821; 71045; 80053; 82962; 85025; 87635; 93005; J0171; J0690; J1100; J1644; J2405; J2704; J2710; J2720; J3010; J7030